=== PATIENT | female | born 1985 | race Caucasian/White ===

== ENCOUNTER 2017-06-25 11:59 | Emergency (ER) | payer OTHER ==
[~2017-06-25] VITALS: Ht 160 cm; Wt 62.6 kg
[~2017-06-25 11:59] MED LIST: AMOXICILLIN500 M1 PO; BENADRYL25 MG PO; BIRTH CONTROL; CIPRO HC OTIC S10 ML OT; CIPROFLOXACIN500 M1 PO; DIFLUCAN150 MG PO; FLAGYL500 MG PO; LEXAPRO 10 MG T10 M2; NOHOMEMEDICATIONS; NORCO 5-325 TA1 EACH PO; PHENERGAN 25 MG25 MG PO; PREDNISONE 20 M20 M1 PO; PROTONIX 20 MG20 M1 PO; SPRINTEC1 EACH PO; TAMSULOSIN HCL0.4 MG PO; VICODIN 5-5001 EACH PO; VICOPROFEN 2001 EACH PO; ZOFRAN ODT4 MG PO
[2017-06-25 12:40] LABS: ABSOLUTE BASOPHILS 0.1 thou/uL (0.0-0.2); ABSOLUTE EOSINOPHILS 0.1 thou/uL (0.0-0.7); ABSOLUTE LYMPHOCYTES 1.9 thou/uL (0.8-5.3); ABSOLUTE MONOCYTES 0.4 thou/uL (0.0-1.2); ABSOLUTE NEUTROPHILS 4.1 thou/uL (1.6-8.1); BASOPHILS 0.9 %; EOSINOPHILS 1.8 %; HEMATOCRIT 38.9 % (37.0-47.0); HEMOGLOBIN 13.2 gm/dL (12.0-15.0); LYMPHOCYTES 28.4 %; MCH 29.1 pg (26.0-34.0); MCHC 33.8 g/dL (28.0-37.0); MCV 86.2 fL (80.0-100.0); MPV 9.3 fl. (7.2-11.1); NUCLEATED RBCS 0 /100WBC; PLATELET COUNT* 200 thou/uL (150-400); POLYS 62.9 %; RBC 4.52 mil/uL (4.20-5.00); RDW-CV 13.5 % (10.5-14.5); WBC 6.5 thou/uL (4.0-11.0)
[2017-06-25 12:47] LABS: CALCIUM 9.2 mg/dL (8.5-10.1); CREATININE 0.9 mg/dL (0.6-1.3); POTASSIUM 3.7 mmol/L (3.5-5.1)
[2017-06-25 12:52] LABS: TOTAL BILIRUBIN 0.4 mg/dL (<0.1-1.0); TOTAL PROTEIN 7.1 g/dL (6.4-8.2)
[2017-06-25] MEDS ORDERED: ASPIRIN325 PO (13:07)
[2017-06-25 13:26] VITALS: BP 111/71
--- NOTE | 2017-06-25 14:59 | EKG ---
[place] [address] ELECTROCARDIOGRAM REPORT Name: YUSRA HEAD Room: [facility]#: [id number] Admission: 06/25/17 Attend Phys: Discharge: 06/25/17 Date of : 83 Report #: [id number] THIS REPORT FOR: //name// [facility] ED Test Date: 2017-06-25 Test Time: 12:27:11 Pat Name: YUSRA HEAD Department: Room: Gender: F Fountain Server: Blanquita CRUZ : 1985 Requested By: Mariaelena Guzman Order Number: [id number] MD: Justyn Gibson Measurements Intervals [place] Rate: 89 P: 75 NM: 166 QRS: 73 QRSD: 83 T: 52 QT: 343 QTc: 418 Interpretive Statements Sinus rhythm No previous ECG available for comparison Electronically Signed On 06-25-2017 14:59:33 CDT by Justyn Gibson [email or web address] <ELECTRONICALLY SIGNED> By: Justyn Gibson MD, [facility] 06/25/17 1459 1227 1227 Justyn Gibson MD, FACC /EPI
== END 2017-06-25 13:27 | disposition home or self-care (01) ==
LOC: M.ERS 11:59
PROVIDERS: Physician Assistant
DX: R09.1 Pleurisy (principal); F41.9 Anxiety disorder, unspecified; Z88.1 Allergy status to other antibiotic agents; Z87.442 Personal history of urinary calculi

== ENCOUNTER 2020-05-13 19:32 | Emergency (ER) | payer OTHER ==
[~2020-05-13] VITALS: Ht 162.6 cm; Wt 63.0 kg
[~2020-05-13 19:32] MED LIST changes: +ASPIRIN325 PO
[2020-05-13] MEDS ORDERED: STATIN (19:39)
[2020-05-13] MEDS ORDERED: ONDANSETRON ODT4 MG PO (20:02)
[2020-05-13] MEDS ORDERED: VISTARIL 25 MG25 M1 PO (20:02)
[2020-05-13 21:42] VITALS: BP 120/76
--- NOTE | 2020-05-14 14:13 | EKG ---
[place] [address] ELECTROCARDIOGRAM REPORT Name: DUNCAN HEADELLE Room: [facility]#: [id number] Admission: 05/13/20 Attend Phys: Discharge: 05/13/20 Date of : 83 Date of Service: 05/13/201935 Report #: [id number] THIS REPORT FOR: //name// [facility] ED Test Date: 2020-05-13 Test Time: 19:36:24 Pat Name: YUSRA HEAD Department: Room: Gender: [employer]er [employer]: MD : 1985 Requested By: Ramiro Fitzgerald Order Number: [id number] MD: Justyn Gibson Measurements Intervals [place] Rate: 119 P: 70 NV: 168 QRS: 63 QRSD: 86 T: -68 QT: 275 QTc: 387 Interpretive Statements Sinus tachycardia Nonspecific T abnormalities, inferior leads Compared to ECG 06/25/2017 12:27:11 T-wave abnormality now present Sinus rhythm no longer present Electronically Signed On 05-14-2020 14:13:49 CDT by Justyn Gibson [email or web address] <ELECTRONICALLY SIGNED> By: Justyn Gibson MD, FACC 05/14/20 1413 35 35 Justyn Gibson MD, [facility] /EPI
== END 2020-05-13 21:42 | disposition home or self-care (01) ==
LOC: M.ERS 19:32
DX: F41.0 Panic disorder [episodic paroxysmal anxiety] (principal); Z88.1 Allergy status to other antibiotic agents; Z87.442 Personal history of urinary calculi; Z90.710 Acquired absence of both cervix and uterus

== ENCOUNTER 2020-09-11 12:24 | Emergency (ER) | payer OTHER ==
[~2020-09-11] VITALS: Ht 160 cm; Wt 59.9 kg
[~2020-09-11 12:24] MED LIST changes: +ONDANSETRON ODT4 MG PO; +STATIN; +VISTARIL 25 MG25 M1 PO
[2020-09-11] MEDS ORDERED: LIPITOR20 MG PO (12:30)
[2020-09-11 13:40] VITALS: BP 135/75
== END 2020-09-11 13:41 | disposition home or self-care (01) ==
LOC: M.ERS 12:24
DX: U07.1 COVID-19 (principal); Z88.1 Allergy status to other antibiotic agents; Z90.710 Acquired absence of both cervix and uterus